=== PATIENT | female | born 1935 | race Caucasian/White ===

== ENCOUNTER 2017-02-26 19:43 | Emergency (ER) | payer MEDICARE, BC ==
[2017-02-26] MEDS ORDERED: SODIUM CHLORIDE 0.9% 1000ML 1,000 ML IV SCH (20:15)
[2017-02-26 20:43] LABS: BASOPHILS % (AUTO) 0 % (0-3); EOSINOPHILS % (AUTO) 0 % (0-9); HEMATOCRIT 32 % (35-47); MEAN CORPUSCULAR HGB CONC 38.7 gm/dl (32.0-36.0); MEAN CORPUSCULAR VOLUME 88 fL (81-99); MONOCYTES % (AUTO) 11.8 % (0-12); NEUTROPHILS % (AUTO) 68.5 % (37-80)
[2017-02-26 20:47] LABS: ALBUMIN 3.6 gm/dl (3.4-5.0); ALT 27 IU/L (14-63); CALCIUM 8.9 mg/dl (8.5-10.1); GLOM FILT RATE 76 mL/min (>60); SODIUM 125 mMol/L (136-145); THYROID STIMULATING HORMONE 0.543 uIU/ml (0.358-3.740)
[2017-02-26 20:51] LABS: POTASSIUM 2.7 mMol/L (3.5-5.1)
[2017-02-26] MEDS ORDERED: POTASSIUM CHLORIDE 2 MEQ/ML SOL IV ONE (20:58)
[2017-02-26] MEDS ORDERED: LIDOCAINE HCL 1% MPF SOL ONE (20:58)
[2017-02-26] MEDS ORDERED: POTASSIUM CHLORIDE 2 MEQ/ML 60 MEQ, LIDOCAINE HCL 1% MDV 2 ML in SODIUM CHLORIDE 0.9% 1... IV ONE (21:00)
[2017-02-26 21:02] LABS: APPEARANCE,URINE Clear; BILIRUBIN,URINE NEGATIVE (NEGATIVE); COLOR,URINE Yellow; GLUCOSE, URINE (UA) NEGATIVE (NEGATIVE); KETONES,URINE 1+ (NEGATIVE); LEUKOCYTE ESTERASE ,URINE TRACE (NEGATIVE); NITRATE,URINE NEGATIVE (NEGATIVE); OCCULT BLOOD,URINE TRACE INTACT (NEG-TRACE); PH,URINE 7.5; UROBILINOGEN,URINE 0.2 (0.2-1.0 EU)
[2017-02-26 21:04] LABS: ANISOCYTOSIS SLIGHT AMT
[2017-02-26 21:05] LABS: OVALOCYTES PRESENT
[2017-02-26 21:12] LABS: RBC,URINE NEG (0-3AV/HPF)
[2017-02-26] MEDS ORDERED: SULFAMETHOXAZOLE/TRIMETHOPRI 800/160 MG ONE (22:35)
[2017-02-26] MEDS ORDERED: DIAZEPAM 5 MG TAB PO ONE (23:17)
[2017-02-26] MEDS ORDERED: DIAZEPAM 5 MG TAB ONE (23:18)
[2017-02-27 05:44] VITALS: O2SAT 95
[2017-02-27 06:45] LABS: CALCIUM 8.1 mg/dl (8.5-10.1); POTASSIUM 4.3 mMol/L (3.5-5.1)
[2017-02-27] MEDS ORDERED: POTASSIUM CHLORIDE 10 MEQ TER PO ONE (07:09)
[2017-02-27] MEDS ORDERED: POTASSIUM CHLORIDE 10 MEQ TER ONE (08:31)
[2017-02-27 10:45] VITALS: BP 159/83; PULSE 80; RESP 20; TEMP 98.8
== END 2017-02-27 10:23 | disposition home or self-care (01) | DRG 149 ==
LOC: ED 19:43
DX: R42 Dizziness and giddiness (principal); E87.1 Hypo-osmolality and hyponatremia; E87.6 Hypokalemia
CPT/HCPCS: 36415; 80048; 80053; 81001; 82570; 84300; 84443; 84484; 85025; 85610; 87040; 93005; 99285; J3480; J2001